=== PATIENT | male | born 1995 | race Caucasian/White ===

== ENCOUNTER 2017-06-22 10:38 | Emergency (ER) | payer SELFPAY ==
[2017-06-22] MEDS ORDERED: cefTRIAXone\\ROCEPHIN 500 MG VIAL ONE (11:05)
[2017-06-22] MEDS ORDERED: Lidocaine 1% 20 ML MDV ONE (11:05)
[2017-06-22] MEDS ORDERED: Azithromycin 250 MG TAB ONE (11:05)
[2017-06-23 22:28] LABS: Chlamydia by PCR DETECTED (NotDetected); GC by PCR DETECTED (NotDetected)
== END 2017-06-22 11:30 | disposition home or self-care (01) ==
LOC: BURERS 10:38
DX: N34.2 Other urethritis (principal); F41.9 Anxiety disorder, unspecified; F17.210 Nicotine dependence, cigarettes, uncomplicated
CPT/HCPCS: 83630; 87045; 87046; 87449; 87491; 87591; 87899; 96372; J0696; J2001

== ENCOUNTER 2019-01-19 23:39 | Emergency (ER) | payer SELFPAY ==
--- NOTE | 2019-01-20 08:03 | RAD ---
Exam:Right wrist 3 views HISTORY: Pain. Injury. COMPARISON: None FINDINGS: Intercarpal and radiocarpal joint spaces are preserved. No fracture. No cortical irregulari ty or periosteal. No significant soft tissue swelling. IMPRESSION: No fracture.
== END 2019-01-20 00:10 | disposition home or self-care (01) ==
LOC: BURERS 23:39
DX: S63.501A Unspecified sprain of right wrist, initial encounter (principal); M79.631 Pain in right forearm; F41.9 Anxiety disorder, unspecified; F17.210 Nicotine dependence, cigarettes, uncomplicated; Z79.899 Other long term (current) drug therapy; W22.8XXA Striking against or struck by other objects, initial encounter